=== PATIENT | female | born 1960 | race Caucasian/White ===

== ENCOUNTER 2024-08-10 02:02 | Outpatient (RCR) | payer OTHER, SELFPAY ==
[2024-08-10 08:33] LABS: Abs Immature Grans 0.02 10^3/uL (0.0-0.06); Absolute Basophil Count 0.04 10^3/uL (0.0-0.2); Absolute Lymphocyte Count 1.65 10^3/uL (1.2-3.4); Absolute Monocyte Count 0.53 10^3/uL (0.1-0.8); Absolute Neutrophil Count 3.78 10^3/uL (1.2-6.7); Basophils % 0.6 %; Eosinophils % 3.2 %; HCT 38.7 % (36.0-46.0); HGB 11.3 g/dL (11.2-15.7); Immature Grans % 0.3 %; Lymphocytes % 26.5 %; MCH 21.9 pg (27.0-33.0); MCHC 29.2 % (32.0-36.0); MCV 75 fL (80-95); Monocytes % 8.5 %; Neutrophils % 60.9 %; RBC 5.17 10^6/uL (3.93-5.22); RDW 14.9 % (11.7-14.6); RDW-SD 40.7 fL; WBC 6.22 10^3/uL (4.4-10.8)
[2024-08-10] MEDS: Normal Saline Flush 10 ML SYR IVP (08:41)
[2024-08-10 08:47] LABS: Microcytosis 1+; Platelet Count 651 10^3/uL (130-400)
[2024-08-10 08:49] LABS: ALT 26 U/L (14-59); AST 29 U/L (15-37); Albumin 2.3 g/dL (3.4-5.0); Alkaline Phosphatase 99 U/L (46-116); BUN 7 mg/dL (7-18); Bilirubin, Total 0.13 mg/dL (0.2-1.0); CREATININE 0.6 mg/dL (0.55-1.02); Calcium 8.7 mg/dL (8.5-10.1); Chloride 102 mmol/L (98-107); Estimated GFR 100.17 (mL/min/1.73m2); Glucose 104 mg/dL (74-106); Magnesium 1.6 mg/dL (1.8-2.4); Potassium 3.8 mmol/L (3.5-5.1); Sodium 141 mmol/L (136-145); Total Protein 8.7 g/dL (6.4-8.2)
== END 2024-08-11 23:59 | disposition home or self-care (01) ==
LOC: INF 02:02
PROVIDERS: Visit Provider Internal Medicine Medical Oncology
DX: D49.89 Neoplasm of unspecified behavior of other specified sites (principal); C79.89 Secondary malignant neoplasm of other specified sites; Z45.2 Encounter for adjustment and management of vascular access device
CPT/HCPCS: 36591; 80053; 83735; 85025

== ENCOUNTER 2024-08-31 01:52 | Outpatient (RCR) | payer OTHER, SELFPAY ==
[2024-08-31] MEDS: Normal Saline Flush 10 ML SYR IVP (09:42)
[2024-08-31 10:04] LABS: Abs Immature Grans 0.05 10^3/uL (0.0-0.06); Absolute Basophil Count 0.07 10^3/uL (0.0-0.2); Absolute Monocyte Count 0.88 10^3/uL (0.1-0.8); Absolute Neutrophil Count 9.68 10^3/uL (1.2-6.7); Basophils % 0.5 %; Eosinophils % 1.5 %; HCT 42.2 % (36.0-46.0); HGB 12.3 g/dL (11.2-15.7); Immature Grans % 0.4 %; Lymphocytes % 18.7 %; MCH 22.3 pg (27.0-33.0); MCHC 29.1 % (32.0-36.0); MCV 76 fL (80-95); MPV 10.2 fL (8.0-11.0); Monocytes % 6.6 %; Neutrophils % 72.3 %; Platelet Count 450 10^3/uL (130-400); RBC 5.52 10^6/uL (3.93-5.22); RDW 18.2 % (11.7-14.6); RDW-SD 47.5 fL; WBC 13.39 10^3/uL (4.4-10.8)
[2024-08-31 10:25] LABS: ALT 22 U/L (14-59); AST 14 U/L (15-37); Albumin 2.8 g/dL (3.4-5.0); Alkaline Phosphatase 97 U/L (46-116); Anion Gap 5.5 mmol/L (3-11); BUN 12 mg/dL (7-18); Bilirubin, Total 0.23 mg/dL (0.2-1.0); CO2 31.5 mmol/L (21.0-32.0); CREATININE 0.5 mg/dL (0.55-1.02); Calcium 8.8 mg/dL (8.5-10.1); Chloride 104 mmol/L (98-107); Estimated GFR 104.67 (mL/min/1.73m2); Glucose 102 mg/dL (74-106); Magnesium 1.8 mg/dL (1.8-2.4); Potassium 4.1 mmol/L (3.5-5.1); Sodium 141 mmol/L (136-145); Total Protein 7.8 g/dL (6.4-8.2)
== END 2024-09-11 23:59 | disposition home or self-care (01) ==
LOC: INF 01:52
PROVIDERS: Visit Provider Internal Medicine Medical Oncology
DX: D49.89 Neoplasm of unspecified behavior of other specified sites (principal); C79.89 Secondary malignant neoplasm of other specified sites
CPT/HCPCS: 36591; 80053; 83735; 85025

== ENCOUNTER 2024-09-21 02:24 | Outpatient (RCR) | payer OTHER, SELFPAY ==
[2024-09-21 08:59] VITALS: BP 114/78; PULSE 72; RESP 18; TEMP 36.6; O2SAT 98
[2024-09-21] MEDS: Normal Saline Flush 10 ML SYR IVP (09:12)
[2024-09-21 09:51] LABS: Abs Immature Grans 0.03 10^3/uL (0.0-0.06); Absolute Basophil Count 0.06 10^3/uL (0.0-0.2); Absolute Eosinophil Count 0.04 10^3/uL (0.0-0.7); Absolute Lymphocyte Count 2.04 10^3/uL (1.2-3.4); Absolute Monocyte Count 0.57 10^3/uL (0.1-0.8); Absolute Neutrophil Count 4.92 10^3/uL (1.2-6.7); Basophils % 0.8 %; Eosinophils % 0.5 %; HCT 42.7 % (36.0-46.0); HGB 12.5 g/dL (11.2-15.7); Immature Grans % 0.4 %; Lymphocytes % 26.6 %; MCH 22.6 pg (27.0-33.0); MCHC 29.3 % (32.0-36.0); MCV 77 fL (80-95); MPV 9.8 fL (8.0-11.0); Monocytes % 7.4 %; Neutrophils % 64.3 %; Platelet Count 406 10^3/uL (130-400); RBC 5.54 10^6/uL (3.93-5.22); RDW 19.3 % (11.7-14.6); RDW-SD 50.6 fL; WBC 7.66 10^3/uL (4.4-10.8)
[2024-09-21 09:58] LABS: ALT 26 U/L (14-59); AST 17 U/L (15-37); Albumin 3.2 g/dL (3.4-5.0); Alkaline Phosphatase 99 U/L (46-116); Anion Gap 4.6 mmol/L (3-11); BUN 14 mg/dL (7-18); Bilirubin, Total 0.25 mg/dL (0.2-1.0); CO2 32.4 mmol/L (21.0-32.0); CREATININE 0.5 mg/dL (0.55-1.02); Calcium 9.5 mg/dL (8.5-10.1); Chloride 104 mmol/L (98-107); Estimated GFR 104.67 (mL/min/1.73m2); Glucose 111 mg/dL (74-106); Magnesium 1.8 mg/dL (1.8-2.4); Potassium 3.7 mmol/L (3.5-5.1); Sodium 141 mmol/L (136-145); Total Protein 7.6 g/dL (6.4-8.2)
== END 2024-10-09 23:59 | disposition home or self-care (01) ==
LOC: INF 02:24
PROVIDERS: Visit Provider Internal Medicine Medical Oncology
DX: D49.89 Neoplasm of unspecified behavior of other specified sites (principal); C79.89 Secondary malignant neoplasm of other specified sites
CPT/HCPCS: 36591; 80053; 83735; 85025

== ENCOUNTER 2024-11-02 02:16 | Outpatient (RCR) | payer OTHER, SELFPAY ==
[2024-10-12] MEDS: Normal Saline Flush 10 ML SYR IVP (08:48)
[2024-10-12 09:10] LABS: Abs Immature Grans 0.02 10^3/uL (0.0-0.06); Absolute Basophil Count 0.05 10^3/uL (0.0-0.2); Absolute Eosinophil Count 0.07 10^3/uL (0.0-0.7); Absolute Lymphocyte Count 1.98 10^3/uL (1.2-3.4); Absolute Monocyte Count 0.47 10^3/uL (0.1-0.8); Absolute Neutrophil Count 3.72 10^3/uL (1.2-6.7); Basophils % 0.8 %; Eosinophils % 1.1 %; HCT 43.8 % (36.0-46.0); HGB 13.1 g/dL (11.2-15.7); Immature Grans % 0.3 %; Lymphocytes % 31.4 %; MCH 22.9 pg (27.0-33.0); MCHC 29.9 % (32.0-36.0); MCV 76 fL (80-95); MPV 9.8 fL (8.0-11.0); Monocytes % 7.4 %; Platelet Count 339 10^3/uL (130-400); RBC 5.73 10^6/uL (3.93-5.22); RDW-SD 55.8 fL; WBC 6.31 10^3/uL (4.4-10.8)
[2024-10-12 09:26] LABS: ALT 28 U/L (14-59); AST 21 U/L (15-37); Albumin 3.4 g/dL (3.4-5.0); Alkaline Phosphatase 101 U/L (46-116); Anion Gap 7.1 mmol/L (3-11); BUN 19 mg/dL (7-18); Bilirubin, Total 0.22 mg/dL (0.2-1.0); CO2 29.9 mmol/L (21.0-32.0); CREATININE 0.5 mg/dL (0.55-1.02); Calcium 9.6 mg/dL (8.5-10.1); Chloride 102 mmol/L (98-107); Estimated GFR 104.67 (mL/min/1.73m2); Glucose 140 mg/dL (74-106); Magnesium 1.7 mg/dL (1.8-2.4); Potassium 4.2 mmol/L (3.5-5.1); Sodium 139 mmol/L (136-145); Total Protein 8.6 g/dL (6.4-8.2)
[2024-10-12 09:29] LABS: Anisocytosis 2+; Diff Comment RBC Morph Reviewed; Poikilocytes 1+
[2024-11-02] MEDS: Normal Saline Flush 10 ML SYR IVP (08:19)
[2024-11-02 08:45] LABS: Abs Immature Grans 0.02 10^3/uL (0.0-0.06); Absolute Basophil Count 0.06 10^3/uL (0.0-0.2); Absolute Eosinophil Count 0.04 10^3/uL (0.0-0.7); Absolute Lymphocyte Count 1.86 10^3/uL (1.2-3.4); Absolute Monocyte Count 0.56 10^3/uL (0.1-0.8); Basophils % 1.1 %; Eosinophils % 0.7 %; HCT 42.6 % (36.0-46.0); Immature Grans % 0.4 %; Lymphocytes % 33.6 %; MCH 23.4 pg (27.0-33.0); MCHC 30.5 % (32.0-36.0); MCV 77 fL (80-95); MPV 9.5 fL (8.0-11.0); Monocytes % 10.1 %; Neutrophils % 54.1 %; Platelet Count 325 10^3/uL (130-400); RBC 5.56 10^6/uL (3.93-5.22); RDW 21.2 % (11.7-14.6); WBC 5.54 10^3/uL (4.4-10.8)
[2024-11-02 09:11] LABS: Anisocytosis 2+; Diff Comment RBC Morph Reviewed
[2024-11-02 09:19] LABS: ALT 26 U/L (14-59); AST 22 U/L (15-37); Albumin 3.1 g/dL (3.4-5.0); Alkaline Phosphatase 91 U/L (46-116); Anion Gap 8.1 mmol/L (3-11); BUN 17 mg/dL (7-18); Bilirubin, Total 0.2 mg/dL (0.2-1.0); CO2 27.9 mmol/L (21.0-32.0); CREATININE 0.6 mg/dL (0.55-1.02); Calcium 9.4 mg/dL (8.5-10.1); Chloride 103 mmol/L (98-107); Estimated GFR 100.17 (mL/min/1.73m2); Glucose 160 mg/dL (74-106); Magnesium 1.7 mg/dL (1.8-2.4); Potassium 4.3 mmol/L (3.5-5.1); Sodium 139 mmol/L (136-145); Total Protein 9.4 g/dL (6.4-8.2)
== END 2024-11-09 23:59 | disposition home or self-care (01) ==
LOC: INF 02:16
PROVIDERS: Visit Provider Internal Medicine Medical Oncology
DX: D49.89 Neoplasm of unspecified behavior of other specified sites (principal); C79.89 Secondary malignant neoplasm of other specified sites
CPT/HCPCS: 36591; 80053; 83735; 85025

== ENCOUNTER 2024-11-23 02:49 | Outpatient (RCR) | payer OTHER, SELFPAY ==
[2024-11-23] MEDS: Normal Saline Flush 10 ML SYR IVP (09:17)
[2024-11-23 09:52] LABS: Absolute Basophil Count 0.05 10^3/uL (0.0-0.2); Absolute Eosinophil Count 0.03 10^3/uL (0.0-0.7); Absolute Lymphocyte Count 1.92 10^3/uL (1.2-3.4); Absolute Monocyte Count 0.66 10^3/uL (0.1-0.8); Absolute Neutrophil Count 4.46 10^3/uL (1.2-6.7); Basophils % 0.7 %; Eosinophils % 0.4 %; HCT 42.2 % (36.0-46.0); HGB 12.8 g/dL (11.2-15.7); Immature Grans % 1.4 %; Lymphocytes % 26.6 %; MCH 24.4 pg (27.0-33.0); MCHC 30.3 % (32.0-36.0); MCV 80 fL (80-95); MPV 9.9 fL (8.0-11.0); Monocytes % 9.1 %; Neutrophils % 61.8 %; Platelet Count 289 10^3/uL (130-400); RBC 5.25 10^6/uL (3.93-5.22); RDW 20.6 % (11.7-14.6); RDW-SD 60.1 fL; WBC 7.22 10^3/uL (4.4-10.8)
[2024-11-23 10:07] LABS: ALT 27 U/L (14-59); AST 19 U/L (15-37); Alkaline Phosphatase 84 U/L (46-116); Anion Gap 6.6 mmol/L (3-11); BUN 17 mg/dL (7-18); Bilirubin, Total 0.2 mg/dL (0.2-1.0); CO2 29.4 mmol/L (21.0-32.0); CREATININE 0.5 mg/dL (0.55-1.02); Calcium 8.8 mg/dL (8.5-10.1); Chloride 107 mmol/L (98-107); Estimated GFR 104.67 (mL/min/1.73m2); Glucose 114 mg/dL (74-106); Magnesium 1.7 mg/dL (1.8-2.4); Potassium 3.9 mmol/L (3.5-5.1); Sodium 143 mmol/L (136-145); Total Protein 7.3 g/dL (6.4-8.2)
[2024-11-23 10:12] LABS: Anisocytosis 2+; Diff Comment RBC Morph Reviewed
== END 2024-12-09 23:59 | disposition home or self-care (01) ==
LOC: INF 02:49
PROVIDERS: Visit Provider Internal Medicine Medical Oncology
DX: D49.89 Neoplasm of unspecified behavior of other specified sites (principal); C79.89 Secondary malignant neoplasm of other specified sites
CPT/HCPCS: 36591; 80053; 83735; 85025

== ENCOUNTER 2024-12-14 08:46 | Outpatient (RCR) | payer OTHER, SELFPAY ==
[2024-12-14] MEDS: Normal Saline Flush 10 ML SYR IVP (09:21)
== END 2025-01-09 23:59 | disposition home or self-care (01) ==
LOC: INF 08:46
PROVIDERS: Visit Provider Internal Medicine Medical Oncology
DX: Z45.2 Encounter for adjustment and management of vascular access device (principal)
CPT/HCPCS: 36591

== ENCOUNTER 2024-12-14 10:28 | Outpatient (REF) | payer OTHER, SELFPAY ==
[2024-12-14 10:50] LABS: Abs Immature Grans 0.02 10^3/uL (0.0-0.06); Absolute Basophil Count 0.04 10^3/uL (0.0-0.2); Absolute Eosinophil Count 0.05 10^3/uL (0.0-0.7); Absolute Lymphocyte Count 1.92 10^3/uL (1.2-3.4); Absolute Monocyte Count 0.55 10^3/uL (0.1-0.8); Absolute Neutrophil Count 2.72 10^3/uL (1.2-6.7); Basophils % 0.8 %; Eosinophils % 0.9 %; HCT 43.2 % (36.0-46.0); HGB 13.4 g/dL (11.2-15.7); Immature Grans % 0.4 %; Lymphocytes % 36.2 %; MCH 25.5 pg (27.0-33.0); MCV 82 fL (80-95); MPV 9.6 fL (8.0-11.0); Monocytes % 10.4 %; Neutrophils % 51.3 %; Platelet Count 297 10^3/uL (130-400); RBC 5.26 10^6/uL (3.93-5.22); RDW 18.6 % (11.7-14.6); RDW-SD 54.9 fL
[2024-12-14 11:00] LABS: ALT 33 U/L (14-59); AST 23 U/L (15-37); Albumin 3.2 g/dL (3.4-5.0); Alkaline Phosphatase 92 U/L (46-116); Anion Gap 5.2 mmol/L (3-11); BUN 18 mg/dL (7-18); Bilirubin, Total 0.2 mg/dL (0.2-1.0); CO2 30.8 mmol/L (21.0-32.0); CREATININE 0.6 mg/dL (0.55-1.02); Calcium 9.4 mg/dL (8.5-10.1); Chloride 102 mmol/L (98-107); Estimated GFR 100.17 (mL/min/1.73m2); Glucose 108 mg/dL (74-106); Magnesium 1.7 mg/dL (1.8-2.4); Sodium 138 mmol/L (136-145)
== END 2024-12-14 10:29 | disposition home or self-care (01) ==
LOC: LBN 10:28
PROVIDERS: Visit Provider Internal Medicine Medical Oncology
DX: D49.89 Neoplasm of unspecified behavior of other specified sites (principal); C79.89 Secondary malignant neoplasm of other specified sites
CPT/HCPCS: 80053; 83735; 85025

== ENCOUNTER 2025-03-04 12:41 | Emergency (ER) | payer OTHER, SELFPAY ==
[2025-03-04 12:55] VITALS: BP 112/70; PULSE 77; RESP 26; TEMP 36.6; O2SAT 95
[2025-03-04 13:00] VITALS: BP 112/70; PULSE 73; PULSE 76; RESP 27; O2SAT 95
--- NOTE | 2025-03-04 13:00 | RT.EKG_ITS ---
APPROVED REPORT Exam: Resting ECG Reason for Exam: weakness Patient Location: E HR:73 bpm ECG Measurements Heart Rate 73 AXIS PA 156 P 60 QRSd 95 QRS -44 QT 403 T 63 QTc 444 Conclusion Sinus rhythm...normal P axis, V-rate 60- 99 No Occlusion TX
[2025-03-04] MEDS: ACETAMINOPHEN 1,000 MG/100 ML BAG 400 MG IVPB (13:36)
[2025-03-04] MEDS: Prochlorperazine 10 MG/2 ML VIAL IVP (13:38)
[2025-03-04] MEDS: Normal Saline 1,000 ML 1000 ML IV (13:38)
[2025-03-04 13:49] LABS: Abs Immature Grans 0.01 10^3/uL (0.0-0.06); HCT 42.9 % (36.0-46.0); HGB 13.5 g/dL (11.2-15.7); Immature Grans % 0.2 %; MCH 26.2 pg (27.0-33.0); MCHC 31.5 % (32.0-36.0); MCV 83 fL (80-95); MPV 10.0 fL (8.0-11.0); Platelet Count 240 10^3/uL (130-400); RBC 5.16 10^6/uL (3.93-5.22); RDW 13.8 % (11.7-14.6); RDW-SD 42.1 fL; WBC 5.70 10^3/uL (4.4-10.8)
[2025-03-04 14:06] LABS: Glucose 500 mg/dL (Negative)
[2025-03-04 14:38] LABS: ALT 33 U/L (14-59); AST 25 U/L (15-37); Albumin 2.9 g/dL (3.4-5.0); Alkaline Phosphatase 72 U/L (46-116); Anion Gap 6.0 mmol/L (3-11); BUN 14 mg/dL (7-18); Bilirubin, Total 0.3 mg/dL (0.2-1.0); CO2 29.0 mmol/L (21.0-32.0); Calcium 9.0 mg/dL (8.5-10.1); Chloride 105 mmol/L (98-107); Estimated GFR 104.67 (mL/min/1.73m2); Glucose 104 mg/dL (74-106); Potassium 3.8 mmol/L (3.5-5.1); Sodium 140 mmol/L (136-145); Total Protein 8.6 g/dL (6.4-8.2)
[2025-03-04 15:15] VITALS: BP 138/80; PULSE 86; RESP 22; O2SAT 95
--- NOTE | 2025-03-04 15:38 | W.ED.GENAD ---
Discharge Plan Disposition Patient Disposition: Home Discharge Details Clinical Impression: Headache, Weakness Primary Care Provider: Unknown,Unknown ED Provider: Pat Reece Home Meds and New Rx's Prescriptions: New prochlorperazine maleate [Compazine] 10 mg tablet 10 mg PO Q6H PRNQty: 10 0RF Discharge Instructions Instructions: Headache, Adult ED, Weakness ED Additional Instructions: Continue on your prescribed medications I am writing for another dose of Compazine if you need it for nausea and headache return should you develop return of headache, weakness, or should any new concerns arise Discharge Data Discharge Date/Time-TO BE ENTERED AT DEPARTURE: 03/04/25 15:19 HPI General Date/Time Provider Initiated Documentation: 03/04/25 13:01. HPI Narrative: This 64-year-old female with history of myasthenia gravis receiving IVIG today presents with report of headache which started this morning prior to receiving IVIG and then weakness which can happen post IVIG with her myasthenia per patient. Between the 2 she is feeling weak and fatigued with a terrible headache. She states this headache is typical for her and she is experienced 1 such as this in the past this is not new. She denies any fever but has had some chills since the IVIG Related Data Home Medications ?Medication ?Instructions ?Recorded ?Confirmed prochlorperazine maleate 10 mg 10 mg PO Q6H PRN #10 tabs 03/04/25 tablet (Compazine) Previous Rx's ?Medication ?Instructions ?Recorded prochlorperazine maleate 10 mg 10 mg PO Q6H PRN #10 tabs 03/04/25 tablet (Compazine) General Stated Complaint: [facility] [place]: 3 Exam Narrative Exam Narrative: Alert and oriented 64-year-old female in no acute distress no meningismus pupils equal round reactive to light and accommodation oropharynx patent uvula midline no failure negative [id number] negative heel-gutierrez negative pronator drift lungs clear to auscultation cardiac rate rhythm regular no rashes or lesions Course Vital Signs Vital signs: Vital Signs Temperature 36.6 C 03/04/25 12:55 Pulse 77 03/04/25 12:55 Respiratory Rate 26 H 03/04/25 12:55 Blood Pressure 112/70 03/04/25 12:55 Pulse Oximetry 95 03/04/25 12:55 Temperature 36.6 C 03/04/25 12:55 Temperature Source Tympanic 03/04/25 12:55 Pulse 86 03/04/25 15:15 Pulse 73 03/04/25 13:00 Respiratory Rate 22 03/04/25 15:15 Respiratory Effort Normal 03/04/25 15:13 Respiratory Depth Normal 03/04/25 15:13 Respiratory Pattern Tachypnea 03/04/25 15:13 Blood Pressure 138/80 03/04/25 15:15 Blood Pressure Mean 84 03/04/25 13:00 Pulse Oximetry 95 03/04/25 15:15 Oxygen Delivery Method Room Air 03/04/25 12:55 Oxygen Flow Rate 0 03/04/25 12:55 Lab/Test Results Lab/Test Results: Laboratory Tests Range/Units 03/04/25 03/04/25 03/04/25 13:39 13:52 14:14 WBC (4.4-10.8) 10^3/uL 5.70 RBC (3.93-5.22) 10^6/uL 5.16 Hgb (11.2-15.7) g/dL 13.5 Hct (36.0-46.0) % 42.9 MCV (80-95) fL 83 MCH (27.0-33.0) pg 26.2 L MCHC (32.0-36.0) % 31.5 L RDW (11.7-14.6) % 13.8 Plt Count (130-400) 10^3/uL 240 MPV (8.0-11.0) fL 10.0 Immature Gran % % 0.2 Neutrophils % % 58.1 Lymphocytes % % 31.2 Monocytes % % 9.1 Eosinophils % % 0.9 Basophils % % 0.5 Nucleated RBC % (0.0-0.3) % 0.0 Absolute Neutrophils (1.2-6.7) 10^3/uL 3.31 Absolute Lymphocytes (1.2-3.4) 10^3/uL 1.78 Absolute Monocytes (0.1-0.8) 10^3/uL 0.52 Absolute Eosinophils (0.0-0.7) 10^3/uL 0.05 Absolute Basophils (0.0-0.2) 10^3/uL 0.03 Sodium Cancelled 140 Potassium Cancelled 3.8 Chloride Cancelled 105 Carbon Dioxide Cancelled 29.0 Anion Gap Cancelled 6.0 BUN Cancelled 14 Creatinine Cancelled 0.5 L Est GFR (CKD-EPI 2020) Cancelled 104.67 Glucose Cancelled 104 Calcium Cancelled 9.0 Total Bilirubin Cancelled 0.3 AST Cancelled 25 ALT Cancelled 33 Alkaline Phosphatase Cancelled 72 Total Protein Cancelled 8.6 H Albumin Cancelled 2.9 L Urine Color (Yellow) Yellow Urine Clarity (Clear) Clear Urine pH (5-8) 7.0 Ur Specific [place] (1.005-1.025) 1.015 Urine Protein (Neg-Trace) mg/dL Negative Urine Ketones (Negative) mg/dL Negative Urine Blood (Negative) Negative Urine Nitrite (Negative) Negative Urine Bilirubin (Negative) Negative Urine Urobilinogen (Up to 0.2) mg/dL 0.2 Ur Leukocyte Esterase (Negative) Negative Urine Glucose (Negative) mg/dL 500 H Medical Decision Making 64-year-old female presenting with headache and weakness post IVIG infusion. The headache started prior to the infusion which is not new for her she has had imaging of her head in the past and states has been negative for headaches. I will give migraine cocktail with Compazine fluids and Tylenol. Approximately 60 minutes postinfusion patient is feeling marked improvement in symptoms she is able to tolerate p.o. and requesting discharge home. She denies any chest pain or shortness of breath she denies any associated dizziness she says the weakness is completely resolved. It sounds like she has had this weakness post IVIG infusion before but was more profound with the headache. She has no signs or symptoms consistent with CVA or TIA clinically. Her headache is completely resolved with migraine cocktail I think that her exam is now reassuring and she is stable for discharge home. Return precautions reviewed and patient expressed understanding discharged home in the care of her labs reviewed CBC CMP and urinalysis do not show significant acute abnormality blood glucose is 104. PFSH All Active Problems (Updated 03/04/25 @ 14:59 by ERIKA Dockery) Weakness (Acute) Headache (Acute) Medical History (Updated 03/04/25 @ 14:59 by ERIKA Dockery) Thyroid disease Hx of migraines Kidney stones Back pain Type 2 diabetes mellitus Asthma Allergies Surgical History (Updated 04/15/24 @ 10:06 by Lizy Lorenzo) H/O: hysterectomy History of cholecystectomy Social History (Updated 04/15/24 @ 10:10 by Lizy Lorenzo) Smoking/Tobacco Use Status: Never Smoking risk assessment performed?: Yes Alcohol Intake: never Drug use: Never
== END 2025-03-04 15:19 | disposition home or self-care (01) ==
PROVIDERS: Emergency Provider Physician Assistant
DX: R53.1 Weakness (principal); R51.9 Headache, unspecified; E11.9 Type 2 diabetes mellitus without complications; G70.00 Myasthenia gravis without (acute) exacerbation; Z79.620 Long term (current) use of immunosuppressive biologic
CPT/HCPCS: 80053; 93005; 96374; 96375; 99284; 81003; 85025; 93010; J0131; J0780

== ENCOUNTER 2025-04-01 18:07 | Outpatient (REF) | payer OTHER, SELFPAY ==
[2025-04-01 14:43] LABS: ALT 38 U/L (14-59); AST 31 U/L (15-37); Albumin 3.2 g/dL (3.4-5.0); Alkaline Phosphatase 75 U/L (46-116); Anion Gap 5.8 mmol/L (3-11); BUN 17 mg/dL (7-18); Bilirubin, Total 0.3 mg/dL (0.2-1.0); CO2 31.2 mmol/L (21.0-32.0); Calcium 9.5 mg/dL (8.5-10.1); Chloride 102 mmol/L (98-107); Estimated GFR 109.77 (mL/min/1.73m2); Glucose 103 mg/dL (74-106); Magnesium 2.0 mg/dL (1.8-2.4); Potassium 3.8 mmol/L (3.5-5.1); Sodium 139 mmol/L (136-145); Total Protein 9.2 g/dL (6.4-8.2)
== END 2025-04-01 18:08 | disposition home or self-care (01) ==
LOC: LBN 18:07
PROVIDERS: Visit Provider Internal Medicine Medical Oncology
DX: D49.89 Neoplasm of unspecified behavior of other specified sites (principal); C79.89 Secondary malignant neoplasm of other specified sites
CPT/HCPCS: 80053; 83735

== ENCOUNTER 2025-08-04 00:29 | Outpatient (CLI) | payer MEDICARE, SELFPAY ==
[2025-08-04] MEDS: Normal Saline Flush 10 ML SYR IVP (08:32)
[2025-08-04] MEDS: EFGARTIGIMOD ALFA FCAB IVPB (08:33)
[2025-08-04] MEDS: NORMAL SALINE IVPB (08:33)
== END 2025-08-04 00:30 | disposition home or self-care (01) ==
LOC: INF 00:29
PROVIDERS: Visit Provider Nurse Practitioner Acute Care
DX: G70.00 Myasthenia gravis without (acute) exacerbation (principal)
CPT/HCPCS: 96365; 96523; J9332